=== PATIENT | female | born 1990 | race Caucasian/White ===

== ENCOUNTER 2020-12-25 19:46 | Emergency (ER) | payer BC, SELFPAY ==
[2020-12-25 19:59] VITALS: BP 125/70; PULSE 112; RESP 14; TEMP 36.9; O2SAT 100; BMI 48.5
--- NOTE | 2020-12-25 20:09 | ED_ITS ---
HPI - General: Chief complaint: Vaginal Bleeding Stated complaint: spotting- 17 weeks Time Seen by Provider: 12/25/20 20:07 Source: patient Mode of arrival: ambulatory Limitations: no limitations History of Present Illness: HPI Narrative: 30-year-old female, GP P1 at 17 weeks by LMP started having vaginal bleeding this evening just prior to arrival. No associated cramping. No passage of clots or tissue. Had a normal ultrasound at 8 weeks to confirm dates. No problems since then. First term, uncomplicated other than requiring RhoGam. No dysuria No fever, nausea, vomiting. MD Complaint: vaginal bleeding Onset (ago): hour(s) Date of Last Menstrual Period: 08/26/20 Associated symptoms: Reports vaginal bleeding; Deny abdominal pain, dysuria, headache(s), nausea or vomiting Review of Systems General: Reports: 10 or more systems reviewed and unremarkable except in HPI and below Const: Denies: fever(s), chills, body aches, change in appetite or night sweats Eyes: Denies: change in vision, blurry vision or blind spots Card: Denies: chest pain, palpitations, irregular heart rhythm or lightheadedness Resp: Denies: dyspnea, productive cough or non-productive cough GI: Denies: abdominal pain, nausea, vomiting, heartburn, diarrhea or constipation : Reports: vaginal bleeding; Denies: difficulty voiding or dysuria Skin/Breast: Denies: rash, pruritus, erythema, photosensitivity, skin pain or skin tenderness Neuro: Denies: headache(s), numbness in extremities, weakness in extremities, sensory changes or lack of coordination Psych: Denies: anxiety or depression Endo: Denies: polyuria [facility] ED Female Reproductive History: Date of last menstrual period: 08/26/20 Physical Exam Const: COMMON NORMALS: no acute distress EXAM LIMITATIONS: altered mental status GENERAL APPEARANCE: cooperative and comfortable NUTRITIONAL APPEARANCE: obese ORIENTATION/CONSCIOUSNESS: Yes awake, Yes oriented to person, Yes oriented to place and Yes oriented to time Eye: COMMON NORMALS: EOMs intact bilaterally and negative for no scleral icte deanne GENERAL EYE: appearance normal, both eyes and all related structures Resp: COMMON NORMALS: normal respiratory effort and clear to auscultation bilaterally EFFORT & INSPECTION: Yes able to speak in complete sentences AUSCULTATION: clear to auscultation bilaterally : EXTERNAL FEMALE EXAM: Yes normal appearance of the urethra, Yes Abnormal introitus, No erythema, No externally tender and No external swelling SPECULUM EXAM - VAGINA: No foreign body, Yes vaginal bleeding Amount: small/minimal, No tissue present in vagina and No tenderness SPECULUM EXAM - CERVIX: Yes Cervical os open, No Tissue present in the cervical os, No Cervical lesion present, No Cervical mass present, No Cervical laceration present and No Cervical tenderness present BIMANUAL EXAM - VAGINA & UTERUS: No Cervical tenderness present OB/EXTERNAL & SPECULUM: Cervical os open and vaginal blee ding; no foreign bodies and no tissue noted in vagina UTERUS PALPATION: No Uterus tender Neuro: SENSORIUM/ORIENTATION: Yes oriented to person, Yes oriented to place and Yes oriented to time Skin: COMMON NORMALS: no rashes or lesions noted GENERAL SKIN EXAM: no rashes or lesions noted, no ecchymo and no induration Course Vital Signs: Vital signs: Vital Signs Temperature 98.5 F 12/25/20 22:46 Pulse Rate 95 12/25/20 22:46 Respiratory Rate 18 12/25/20 22:46 Blood Pressure 129/75 12/25/20 22:46 Pulse Oximetry 97 12/25/20 22:46 MDM - OB/Uterine Contractions MDM Narrative: Medical decision making narrative: 30-year-old female at approximately 17 weeks by LMP with vaginal bleeding. Urine hCG in the 400s Ultrasound shows no heart activity, fetus measuring 11 weeks. Light bleeding on exam, cervix soft, partially open. Stable H&H. History of Rh-, RhoGam shot given. Urinalysis does not suggest active infection. Afebrile. Strict return precautions for bleeding and/or infection She already has a follow-up with her PIZZA DELIVERY DRIVER scheduled for tomorrow afternoon. Medical Records: Attestation: I reviewed the patient's medical records. Lab Data: Attestation: I reviewed the patient's lab results. Labs: Lab Results 12/25/20 12/25/20 12/25/20 Range/Units 20:25 20:25 20:25 WBC 10.6 H (4.0-10.0) 10^3/ uL RBC 5.29 (4.1-5.3) 10^6/u L Hgb 13.1 (11.5-15.3) g/dL Hct 42.2 (37.0-47.0) % MCV 79.8 L (81-99) fL MCH 24.8 L (28.0-34.0) pg MCHC 31.0 (30.0-36.0) g/dL RDW 14.6 (12.1-15.1) % Plt Count 255 (130-400) 10^3/c mm MPV 9.8 (7.4-10.4) fL Neut % (Auto) 64.7 % Lymph % (Auto) 27.0 % [place] % (Auto) 5.0 % Eos % (Auto) 2.1 % Baso % (Auto) 0.3 % Neut # (Auto) 6.87 (1.8-7.7) 10^3/u L Lymph # (Auto) 2.9 (0.8-4.8) 10^3/u L [place] # (Auto) 0.5 (0.2-0.9) 10^3/u L Eos # (Auto) 0.2 (0.0-0.8) 10^3/u L Baso # (Auto) 0.0 (0.0-0.1) 10^3/u L Nucleated RBC % (a uto) 0 % Nucleated RBCs # 0.0 /100WBC Sodium 140 (136-145) mmol/L Potassium 3.6 (3.5-5.1) mmol/L Chloride 103 (98-107) mmol/L Carbon Dioxide 26 (22-29) mmol/L Anion Gap 14.6 (5-19) BUN 12 (6-20) mg/dL Creatinine 0.4 L (0.5-0.9) mg/dL GFR Calculation 187.4 H (90-130) mL/min Glucose 82 (65-115) mg/dL Calculated Osmolal ity 289 (285-295) mOsm/k g Calcium 9.7 (8.5-10.5) mg/dL Total Bilirubin 0.2 (0.15-1.2) mg/dL AST 19 (0-32) U/L ALT 26 (0-33) U/L Alkaline Phosphata se 83 (35-105) IU/L Total Protein 7.8 (6.6-8.7) g/dL Albumin 4.2 (3.5-5.2) g/dL Globulin 3.6 (1.3-4.6) g/dL HCG, Qual (Negative) Ser , Suri i-Qnt 481.70 mIU/mL Urine Color (Yellow) Urine Appearance (CLEAR) Urine pH (5-7) Ur Specific Gravit y (1.005-1.030) Urine Protein (Negative) Urine Glucose (UA) (Normal) Urine Ketones (Negative) Urine Blood (Negative) Urine Nitrate (Negative) Urine Bilirubin (Negative) Urine Urobilinogen (Negative) mg/dL Ur Leukocyte Marie ase (Negative) Urine RBC (0-2) /hpf Urine WBC (0-5) /hpf Ur Squamous Epith Cells (0-5) /hpf Amorphous Sediment Urine Bacteria (NONE) /hpf Blood Type O Negative Rho(D) Type Negative Antibody Screen Negative 12/25/20 12/25/20 Range/Units 20:34 20:34 WBC (4.0-10.0) 10^3/ uL RBC (4.1-5.3) 10^6/u L Hgb (11.5-15.3) g/dL Hct (37.0-47.0) % MCV (81-99) fL MCH (28.0-34.0) pg MCHC (30.0-36.0) g/dL RDW (12.1-15.1) % Plt Count (130-400) 10^3/c mm MPV (7.4-10.4) fL Neut % (Auto) % Lymph % (Auto) % [place] % (Auto) % Eos % (Auto) % Baso % (Auto) % Neut # (Auto) (1.8-7.7) 10^3/u L Lymph # (Auto) (0.8-4.8) 10^3/u L [place] # (Auto) (0.2-0.9) 10^3/u L Eos # (Auto) (0.0-0.8) 10^3/u L Baso # (Auto) (0.0-0.1) 10^3/u L Nucleated RBC % (a uto) % Nucleated RBCs # /100WBC Sodium (136-145) mmol/L Potassium (3.5-5.1) mmol/L Chloride (98-107) mmol/L Carbon Dioxide (22-29) mmol/L Anion Gap (5-19) BUN (6-20) mg/dL Creatinine (0.5-0.9) mg/dL GFR Calculation (90-130) mL/min Glucose (65-115) mg/dL Calculated Osmolal ity (285-295) mOsm/k g Calcium (8.5-10.5) mg/dL Total Bilirubin (0.15-1.2) mg/dL AST (0-32) U/L ALT (0-33) U/L Alkaline Phosphata se (35-105) IU/L Total Protein (6.6-8.7) g/dL Albumin (3.5-5.2) g/dL Globulin (1.3-4.6) g/dL HCG, Qual Positive H (Negative) Ser , Suri i-Qnt mIU/mL Urine Color Yellow (Yellow) Urine Appearance Clear (CLEAR) Urine pH 5 (5-7) Ur Specific Gravit y 1.020 (1.005-1.030) Urine Protein Neg (Negative) Urine Glucose (UA) Norm (Normal) Urine Ketones Negative (Negative) Urine Blood 3+ H (Negative) Urine Nitrate Negative (Negative) Urine Bilirubin Neg (Negative) Urine Urobilinogen Norm (Negative) mg/dL Ur Leukocyte Marie ase Negative (Negative) Urine RBC 25-40 H (0-2) /hpf Urine WBC 0-4 H (0-5) /hpf Ur Squamous Epith Cells 15-25 H (0-5) /hpf Amorphous Sediment Not Reportable Urine Bacteria Trace (NONE) /hpf Blood Type Rho(D) Type Antibody Screen Discharge Plan Discharge Patient Disposition: Home Clinical Impression: Incomplete , Vaginal bleeding Condition: Stable Discharge Orders: Discharge ED (Routine); Ordered 12/25/20 Ordered By: Mariely Wilson Referrals: Briana Wan MD [Primary Care Provider] - Discharge Diet: Advance as tolerated Discharge Activity: Resume usual activity Patient Instructions: Spontaneous Miscarriage (ED) Activity Restrictions/Additional Instructions: Rest, drink plenty of fluids. Make sure to follow-up with your PIZZA DELIVERY DRIVER as scheduled tomorrow. Return immediately to the ER if you develop heavy bleeding, dizziness, fever, severe pain, or any other sudden changes. 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
[2020-12-25 20:31] LABS: Basophils % 0.3 %; Eosinophils # 0.2 10^3/uL (0.0-0.8); Eosinophils % 2.1 %; Hematocrit 42.2 % (37.0-47.0); Hemoglobin 13.1 g/dL (11.5-15.3); Lymphocytes # 2.9 10^3/uL (0.8-4.8); Mean Corpuscular Hemoglobin 24.8 pg (28.0-34.0); Mean Corpuscular Volume 79.8 fL (81-99); Mean Platelet Volume 9.8 fL (7.4-10.4); Monocytes # 0.5 10^3/uL (0.2-0.9); Neutrophils # 6.87 10^3/uL (1.8-7.7); Neutrophils % 64.7 %; Nucleated Red Blood Cells % 0 %; Platelet Count 255 10^3/cmm (130-400); Red Blood Count 5.29 10^6/uL (4.1-5.3); Red Cell Distribution Width 14.6 % (12.1-15.1); White Blood Count 10.6 10^3/uL (4.0-10.0)
[2020-12-25] MEDS: sodium chloride 0.9% 1,000 ML 999 ML IV (20:33)
[2020-12-25 20:41] LABS: HCG Qualitative Urine. Positive (Negative)
--- NOTE | 2020-12-25 20:46 | US_ITS ---
WS: [id number] ULTRASOUND EARLY TECHNIQUE: Transabdominal sonography of the pelvis was performed. CLINICAL INFORMATION: vag bleeding, 17 weeks LMP: 08/26/2020 Beta hCG: Unknown. COMPARISON: None. FINDINGS: UTERUS AND GESTATIONAL SAC Intrauterine gestations: Intrauterine gestation with no visualized cardiac activity or movement. Findings compatible with feta l demise. Estimated gestational age: 11w6d [place] rump length (CRL): 5.2 cm. heart motion: 0 BPM. Subchorionic hemorrhage: None. OVARIES Right ovary: Normal. Left ovary: Normal. FREE FLUID None. US/US OB limited [id number] IMPRESSION: 1. No cardiac activity with delayed growth compatible with demise.
[2020-12-25 20:59] LABS: Alanine Aminotransferase 26 U/L (0-33); Albumin Level 4.2 g/dL (3.5-5.2); Alkaline Phosphatase 83 IU/L (35-105); Anion Gap 14.6 (5-19); Aspartate Amino Transferase 19 U/L (0-32); Blood Urea Nitrogen 12 mg/dL (6-20); Calcium 9.7 mg/dL (8.5-10.5); Carbon Dioxide 26 mmol/L (22-29); Chloride 103 mmol/L (98-107); Globulin 3.6 g/dL (1.3-4.6); Glomerular Filtration Rate 187.4 mL/min (90-130); Glucose 82 mg/dL (65-115); Osmolality Calculated 289 mOsm/kg (285-295); Potassium 3.6 mmol/L (3.5-5.1); Sodium 140 mmol/L (136-145); Total Bilirubin 0.2 mg/dL (0.15-1.2); Total Protein 7.8 g/dL (6.6-8.7)
[2020-12-25 22:05] VITALS: BP 123/78; PULSE 99; RESP 18; TEMP 36.8; O2SAT 99
[2020-12-25 22:36] LABS: Add Urine Microscopic? YES; Bilirubin Urine Neg (Negative); Blood Urine 3+ (Negative); Glucose Urine UA Norm (Normal); Ketones Urine Negative (Negative); Leukocyte Esterase Urine Negative (Negative); Nitrate Urine Negative (Negative); Protein Urine Neg (Negative); Urine Appearance Clear (CLEAR); Urine Color Yellow (Yellow); Urobilinogen Urine Norm (Negative); pH Urine 5 (5-7)
[2020-12-25 22:38] LABS: Add Urine Culture? No; Bacteria Urine TRACE /hpf; RBC Urine 25-40 /hpf (0-2); Squamous Epithelial Cell Urine 15-25 /hpf (0-5); WBC Urine 0-4 /hpf (0-5)
[2020-12-25 22:46] VITALS: BP 129/75; PULSE 95; RESP 18; TEMP 36.9; O2SAT 97
== END 2020-12-25 22:52 | disposition home or self-care (01) ==
PROVIDERS: Physician Assistant; Emergency Provider Family Medicine; PCP Family Medicine
DX: O03.4 Incomplete spontaneous abortion without complication (principal)
CPT/HCPCS: 12345; 36430; 76815; 80053; 81001; 81025; 84702; 85025; 86850; 86900; 90384; 96360; 99283; J7030

== ENCOUNTER 2020-12-26 15:12 | Observation (INO) | payer BC, SELFPAY ==
[2020-12-26] VITALS (19 sets, daily range): BP systolic 108–135; BP diastolic 51–66; PULSE 86–102; TEMP 36.4–36.7; BMI 48.4
[2020-12-26] MEDS: miSOPROStol 200 mcg Tablet 800 MCG VAGINAL (16:38)
[2020-12-26 17:19] LABS: Basophils % 0.3 %; Eosinophils # 0.2 10^3/uL (0.0-0.8); Eosinophils % 2.2 %; Hematocrit 41.3 % (37.0-47.0); Hemoglobin 12.6 g/dL (11.5-15.3); Lymphocytes # 2.2 10^3/uL (0.8-4.8); Lymphocytes % 24.1 %; Mean Corpuscular HGB Conc 30.5 g/dL (30.0-36.0); Mean Corpuscular Volume 81.9 fL (81-99); Mean Platelet Volume 10.6 fL (7.4-10.4); Monocytes # 0.4 10^3/uL (0.2-0.9); Monocytes % 4.8 %; Neutrophils # 6.22 10^3/uL (1.8-7.7); Neutrophils % 67.6 %; Nucleated Red Blood Cells % 0 %; Platelet Count 257 10^3/cmm (130-400); Red Blood Count 5.04 10^6/uL (4.1-5.3); Red Cell Distribution Width 14.7 % (12.1-15.1); White Blood Count 9.2 10^3/uL (4.0-10.0)
[2020-12-26] MEDS: miSOPROStol 200 mcg Tablet 400 MCG PO (20:54)
--- NOTE | 2020-12-26 23:45 | PC.NURSE ---
RN called to bedside, patient reports that fetus had delivered. This RN lifted blanket and fetus noted on bed cord still attached. Cord was clamped and cut by this RN. was placed in blanket and handed to mother. Placenta still not delivered.
[2020-12-27] VITALS (46 sets, daily range): BP systolic 111–150; BP diastolic 53–92; PULSE 82–107; RESP 16; TEMP 36.4–36.7
--- NOTE | 2020-12-27 00:05 | PC.NURSE ---
home paged per patient request
--- NOTE | 2020-12-27 00:15 | PC.NURSE ---
linen room attendant at bedside.
--- NOTE | 2020-12-27 00:20 | PC.NURSE ---
home leaves unit with infant.
--- NOTE | 2020-12-27 00:30 | PC.NURSE ---
RN at bedside, placenta not delivered at this time.
[2020-12-27] MEDS: ketorolac 30 mg/mL INJ IVP ×2 (00:42→08:34)
--- NOTE | 2020-12-27 01:47 | PC.NURSE ---
RN at bedside, placenta not delivered at this time.
--- NOTE | 2020-12-27 02:51 | PC.NURSE ---
RN at bedside, placenta not delivered. Carrol care provided.
--- NOTE | 2020-12-27 03:40 | PC.NURSE ---
RN at bedside, markell care. Placenta not delivered.
--- NOTE | 2020-12-27 04:42 | PC.NURSE ---
patient denies wanting any medication for pain at this time.
--- NOTE | 2020-12-27 04:43 | PC.NURSE ---
placenta not delivered at this time
[2020-12-27] MEDS: miSOPROStol 200 mcg Tablet PO (04:58)
[2020-12-27] MEDS: fentaNYL 50 mcg/mL INJ 2mL IV ×2 (04:58→07:25)
[2020-12-27] MEDS: ondansetron 2 mg/ML SDV 2 mL 4 MG IVP (04:58)
--- NOTE | 2020-12-27 07:05 | PC.NURSE ---
RN at bedside, markell care performed. Placenta not delivered.
--- NOTE | 2020-12-27 07:50 | PM.HP ---
Providers/Chief Complaint Admitting Physician: Briana Wan MD Primary Care Provider: Briana Wan MD History of Present Illness Margot Orellana is a 30 year old female G2, P1 who was admitted for medical induction of an 11-week demise. On the evening of December 25 she went to urinate and at that time noticed that she had some bright red vaginal spotting. She said it was not heavy at all. She presented immediately to the ER where she was diagnosed there with an 11-week demise. She did not have any further bleeding and was in stable condition so she was discharged from the ER to follow-up in clinic December 26. ER records were verified and options were discussed with the patient for watchful waiting, surgical D&C, and medical induction. Patient preferred to do medical induction and she was admitted to labor and delivery. Review of Systems Const: Denies: fever(s), chills or body aches Eyes: Denies: change in vision ENMT: Denies: throat pain Card: Denies: chest pain Resp: Denies: productive cough, non-productive cough or wheezing GI: Denies: abdominal pain (No cramping) or vomiting : Reports: vaginal bleeding (None since her spotting when she presented to the ER); Denies: flank pain or vaginal discharge Musc: Denies: joint redness or muscle weakness Skin/Breast: Denies: lesions Neuro: Denies: numbness in extremities or frequent falls Endo: Denies: polyuria or polydipsia Rudy/Lymph: Denies: easy bruising or easy bleeding Medications/Allergies Home Medications Medication Instructions Recorded Confirmed Last Taken Type PNV comb no.58-iron bisgly-FA cap PO 12/26/20 12/25/20 20:00 History Allergies Allergy/AdvReac Type Severity Reaction Status Date / Time No Known Allergies Allergy Verified 12/25/20 19:58 PFSH Acute Female Reproductive History: Date of last menstrual period: 08/26/20 : 2 Other female reproductive history: Prior section for failure to progress Vitals/I&O/Wt Last Vital Signs Temp 97.5 F L 12/27/20 04:45 Pulse 93 12/27/20 07:24 Resp 16 12/27/20 07:25 BP 141/78 12/27/20 07:24 12/26/20 12/27/20 12/27/20 22:59 06:59 14:59 Output Total 800 / 800 Balance -800 / -800 Weight last 48 hrs Weight 265 lb Weight 301 lb Weight 265 lb Physical Exam HENMT: COMMON NORMALS: normocephalic and atraumatic Eye: COMMON NORMALS: Equal, round and reactive pupils present and EOMs intact bilaterally Chest: COMMONS NORMALS: normal inspection of the chest Resp: EFFORT & INSPECTION: Yes able to speak in complete sentences AUSCULTATION: clear to auscultation bilaterally Cardio: COMMON NORMALS: regular rate RATE: tachycardic GI: COMMON NORMALS: Soft to palpation PALPATION: No Tenderness to palpation present (GI) Extremity: COMMON NORMALS: no calf tenderness GENERAL: Yes edema (Trace versus obesity) Neuro: SENSORIUM/ORIENTATION: Yes alert, Yes oriented to person and Yes oriented to place Psych: MOOD & AFFECT: Yes tearful THOUGHT PROCESS: Normal thought process present Data : 12/26/20 15:55 A&P Assessment and plan (1) Incomplete : he patient was admitted last evening and has been administered Cytotec. She did pass the fetus uneventfully. The placenta has yet to pass so she is given another dose of Cytotec. She is receiving pain control with fentanyl. If this next dose of Cytotec is not effective we will plan to take her downstairs for a D&C in the OR. 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
[2020-12-27] MEDS: miSOPROStol 200 mcg Tablet 600 MCG SUBLINGUAL (09:22)
--- NOTE | 2020-12-27 12:53 | PC.NURSE ---
Pt delivered placenta at 1226. Placenta appeared to be intact.
--- NOTE | 2021-01-09 16:54 | PM.DCS ---
Discharge Providers Date of Admission: 12/26/20 15:12 Date of Discharge: December 27, 2020 Attending Provider at Admission: Briana Wan MD Attending Provider at Discharge: Briana Wan MD Primary Care Provider: Briana Wan MD Diagnoses at Discharge Discharge Diagnosis (1) Incomplete : Status: Inactive (2) Vaginal bleeding: Status: Inactive (3) Complete : Status: Acute Hospital Course Hospital Course This is a 30 y/o who was admitted for medically monitored induced of an 11 week demise. The patient successfully passed both fetus and placenta using misoprostil. Her post-delivery bleeding was light and she was requesting discharge home shortly after passing the POC. Discharge Data Vitals: Last Vital Signs Temp 98.1 F 12/27/20 13:53 Pulse 96 12/27/20 13:53 Resp 16 12/27/20 13:53 BP 117/59 12/27/20 13:53 Discharge Plan Discharge Patient Disposition: Home Prescriptions: Continued PNV comb no.58-iron bisgly-FA 10-400 mg-mcg Capsule PO RF: 0 Discharge Orders: Discharge Order (Routine); Ordered 12/27/20 Ordered By: Briana Wan Referrals: Briana Wan MD [Primary Care Provider] - 2 weeks Discharge Diet: Usual diet Discharge Activity: Limit activity as instructed Patient Instructions: Spontaneous Miscarriage (DC) Stand Alone Forms: Work/School Release Discharge Attestations Time Spent in Discharge Care*: less than 30 min Quality Metrics Clinical Quality Measures During this hospital stay, did patient experience: None Coding Level of Care Code Acute Allergy And Immunology Specialist for Chg Fwd Diagnoses Incomplete O03.4 Vaginal bleeding N93.9 Complete O03.9
== END 2020-12-27 13:51 | disposition home or self-care (01) ==
PROVIDERS: Admitting Provider Family Medicine; PCP Family Medicine; Visit Provider Family Medicine
DX: O03.9 Complete or unspecified spontaneous abortion without complication (principal); N93.9 Abnormal uterine and vaginal bleeding, unspecified; Z3A.11 11 weeks gestation of pregnancy
CPT/HCPCS: 36415; 59409; 85025; 96361; 96365; 96375; 99211; G0378; G0379; J1885; J2405; J3010

== ENCOUNTER 2021-03-27 20:00 | Outpatient (CLI) | payer BC, SELFPAY | END 2021-03-27 20:01 | disposition home or self-care (01) | LOC: SLEEP 03-28 10:02 | PROVIDERS: PCP Family Medicine; Visit Provider Family Medicine | DX: G47.33 Obstructive sleep apnea (adult) (pediatric) (principal) | CPT/HCPCS: 95810 ==

== ENCOUNTER 2022-04-24 08:04 | Outpatient (CLI) | payer BC, SELFPAY ==
--- NOTE | 2022-04-24 | US_ITS ---
WS: [id number] Exam: US OB >= 14 weeks fetus [id number] Date/Time of Exam: 04/24/2022 12:00 AM Reason For Exam: 18 WEEKS OF GESTATION OF NUMBER: One PRESENTATION: Vertex CARDIAC ACTIVITY: 1 58 bpm MOVEMENT: Satisfactory AMNIOTIC FLUID VOLUME: Subjectively normal PLACENTA: Posterior grade 0. The placenta partially covers the internal cervical os. BIPARIETAL DIAMETER MEASUREMENTS: 4.8 cm, equals 20w3d. FEMORAL LENGTH MEASUREMENTS: 3.3 cm, equals 20w3d. ABDOMINAL CIRCUMFERENCE: 15.3 cm, equals 20w3d. ESTIMATED WEIGHT: 356 g +/- 50 2 g g. ESTIMATED GESTATIONAL AGE: 20 weeks 3 days YAYA is 09/08/2022 The stomach, kidneys, bladder and cord insertion appear normal. Three-vessel umbilical cord was noted. The spine, lateral ventricles, cerebellum and cisterna magna all appear normal. 4 chambered h eart was confirmed. Recommendations: Follow-up ultrasound in 8-10 weeks would be recommended for ongoing evaluation of pl acental location. US/US OB >= 14 weeks fetus [id number] IMPRESSION: Viable intrauterine with single fetus estimated at 20 weeks 3 days ge stational age. YAYA is 09/08/2022 Posterior placenta with partial placenta previa.
== END 2022-04-24 08:05 | disposition home or self-care (01) ==
LOC: RADOUTREAD 04-25 08:06
PROVIDERS: PCP Family Medicine; Visit Provider Family Medicine
DX: Z3A.18 18 weeks gestation of pregnancy (principal)
CPT/HCPCS: 76805

== ENCOUNTER → 2022-07-03 08:57 | Day surgery (SDC) | payer BC, SELFPAY ==
[2022-07-03 09:29] VITALS: BP 134/77; PULSE 101; RESP 18; TEMP 36.4; O2SAT 96
[2022-07-03 10:34] VITALS: BP 134/77; PULSE 101; RESP 18; TEMP 36.4; O2SAT 96
== END ==
PROVIDERS: PCP Family Medicine; Visit Provider Family Medicine
DX: O26.893 Other specified pregnancy related conditions, third trimester (principal); Z3A.00 Weeks of gestation of pregnancy not specified; Z67.91 Unspecified blood type, Rh negative
CPT/HCPCS: 36415; 86850; 86900; 90384; 96372

== ENCOUNTER 2022-08-01 14:50 | Outpatient (CLI) | payer BC, SELFPAY ==
[2022-08-01] VITALS (10 sets, daily range): BP systolic 128–155; BP diastolic 62–75; PULSE 114–133; RESP 18; TEMP 37.4–38.2; BMI 46.1
[2022-08-01 15:37] LABS: Urine Appearance SL Hazy (CLEAR); Urine Color Yellow (Yellow)
[2022-08-01 15:38] LABS: Bilirubin Urine Neg (Negative); Blood Urine Neg (Negative); Glucose Urine UA Norm (Normal); Ketones Urine 2+ (Negative); Leukocyte Esterase Urine Negative (Negative); Nitrate Urine Negative (Negative); Protein Urine Neg (Negative); Specific Gravity, Urine 1.015 (1.005-1.030); Urobilinogen Urine Norm (Negative); pH Urine 5 (5-7)
[2022-08-01 15:39] LABS: Bacteria Urine 1+ /hpf; RBC Urine RARE /hpf (0-2); WBC Urine 0-4 /hpf (0-5)
[2022-08-01 15:40] LABS: Add Urine Culture? No; Mucus Urine TRACE /hpf
--- NOTE | 2022-08-01 15:59 | USR_ITS ---
PROCEDURE INFORMATION: Exam: US Biophysical Profile Without Non-Stress Test Exam date and time: 08/01/2022 4:39 PM Age: 32 years old Clinical indication: Screening exam; Routine US screening of fetus; Third trimester (=28 weeks 0 days); ; Additional info: Non reactive nst for over 30min TECHNIQUE: Imaging protocol: US biophysical profile without non-stress testing. COMPARISON: No relevant prior studies available. FINDINGS: heart rate: 171 bpm presentation: Cephalic Placenta: Fundal placenta without previa. Amniotic fluid: Amniotic fluid volume is normal. Amniotic fluid index: AMBER is 15.2 cm. BIOPHYSICAL PROFILE: breathing movement (BPP): 2/2 body movement (BPP): 2/2 tone (BPP): 2/2 Amniotic fluid (BPP): 2/2 Biophysical profile score (BPP): 8/8 MATERNAL ANATOMY: Cervix: Cervical length measures 4.3 cm. Closed cervix. US/US OB BPP wo NST [id number] IMPRESSION: Normal biophysical profile score 8/8.
[2022-08-01] MEDS: terbutaline 1 mg/mL INJ 0.25 MG SUBCUT (16:34)
== END 2022-08-01 17:00 | disposition home or self-care (01) ==
LOC: OPOB 15:01 → OBGYN 15:03
PROVIDERS: PCP Family Medicine; Visit Provider Family Medicine
DX: O36.8330 Maternal care for abnormalities of the fetal heart rate or rhythm, third trimester, not applicable or unspecified (principal); O26.893 Other specified pregnancy related conditions, third trimester; R10.9 Unspecified abdominal pain; Z3A.34 34 weeks gestation of pregnancy
CPT/HCPCS: 59025; 76819; 81001; 96372; 99211; J3105

== ENCOUNTER 2022-08-12 15:12 | Outpatient (CLI) | payer BC, SELFPAY ==
[2022-08-12 15:27] VITALS: BP 118/70; PULSE 92
[2022-08-12 15:30] VITALS: BMI 46.5
[2022-08-12 15:48] VITALS: BP 109/72; PULSE 85
== END 2022-08-12 15:55 | disposition home or self-care (01) ==
LOC: OPOB 15:17 → OBGYN 15:18
PROVIDERS: PCP Family Medicine; Visit Provider Family Medicine
DX: O24.419 Gestational diabetes mellitus in pregnancy, unspecified control (principal); O16.9 Unspecified maternal hypertension, unspecified trimester; Z3A.00 Weeks of gestation of pregnancy not specified
CPT/HCPCS: 59025; 99211

== ENCOUNTER 2022-08-16 14:50 | Outpatient (CLI) | payer BC, SELFPAY ==
[2022-08-16 14:50] VITALS: BMI 45.4
[2022-08-16 15:01] VITALS: BP 134/63; PULSE 98
[2022-08-16 15:21] VITALS: BP 136/65; PULSE 89
[2022-08-16 15:35] VITALS: BP 136/65; PULSE 89; RESP 20
== END 2022-08-16 15:30 | disposition home or self-care (01) ==
LOC: OPOB 14:53 → OBGYN 14:54
PROVIDERS: PCP Family Medicine; Visit Provider Family Medicine
DX: O24.419 Gestational diabetes mellitus in pregnancy, unspecified control (principal); Z3A.00 Weeks of gestation of pregnancy not specified; O16.9 Unspecified maternal hypertension, unspecified trimester
CPT/HCPCS: 59025; 99211

== ENCOUNTER 2022-08-19 14:36 | Outpatient (CLI) | payer BC, SELFPAY ==
[2022-08-19 14:43] VITALS: BP 134/62; PULSE 107
[2022-08-19 15:02] VITALS: BMI 47.0
[2022-08-19 15:09] VITALS: BP 123/70; PULSE 96
[2022-08-19 15:23] VITALS: BP 118/66; PULSE 90
--- NOTE | 2022-08-19 15:23 | US_ITS ---
WS: [id number] BIOPHYSICAL PROFILE AMNIOTIC FLUID HISTORY: decels. COMPARISON: 08/01/2022 Cardiac activity: 138 bpm. Cervix: closed. Placenta: Posterior, no previa or abruption. Placenta grade: 2 Parameters are as follows: Breathin Movement: 2 Tone: 2 Fluid volume: 2 Amniotic fluid index: 13.3 cm. Maximal vertical pocket 4.6 cm. US/US OB BPP wo NST [id number] IMPRESSION: 1. Biophysical profile score: 8/8. 2. Normal amniotic fluid index.
[2022-08-19 15:38] VITALS: BP 130/72; PULSE 100
[2022-08-19 15:52] VITALS: BP 131/68; PULSE 96
[2022-08-19 16:08] VITALS: BP 130/75; PULSE 102
== END 2022-08-19 16:00 | disposition home or self-care (01) ==
LOC: OPOB 14:38 → OBGYN 14:39
PROVIDERS: PCP Family Medicine; Visit Provider Family Medicine
DX: O26.899 Other specified pregnancy related conditions, unspecified trimester (principal); Z3A.00 Weeks of gestation of pregnancy not specified
CPT/HCPCS: 59025; 76819

== ENCOUNTER 2022-08-23 14:43 | Outpatient (CLI) | payer BC, SELFPAY ==
[2022-08-23 14:50] VITALS: RESP 18; BMI 46.5
[2022-08-23 14:56] VITALS: BP 129/67; PULSE 93; TEMP 35.8
[2022-08-23 15:22] VITALS: BP 129/67; PULSE 93; TEMP 35.8
== END 2022-08-23 15:22 | disposition home or self-care (01) ==
LOC: OPOB 14:43 → OBGYN 14:44
PROVIDERS: PCP Family Medicine; Visit Provider Family Medicine
DX: O24.419 Gestational diabetes mellitus in pregnancy, unspecified control (principal); O16.9 Unspecified maternal hypertension, unspecified trimester; Z3A.00 Weeks of gestation of pregnancy not specified
CPT/HCPCS: 59025

== ENCOUNTER 2022-08-26 15:07 | Outpatient (CLI) | payer BC, SELFPAY ==
[2022-08-26 15:10] VITALS: BMI 46.5
[2022-08-26 15:44] VITALS: BP 106/57; PULSE 91
== END 2022-08-26 15:53 | disposition home or self-care (01) ==
LOC: OPOB 15:09 → OBGYN 15:09
PROVIDERS: PCP Family Medicine; Visit Provider Family Medicine
DX: O24.419 Gestational diabetes mellitus in pregnancy, unspecified control (principal); O16.9 Unspecified maternal hypertension, unspecified trimester; Z3A.00 Weeks of gestation of pregnancy not specified
CPT/HCPCS: 59025; 99211

== ENCOUNTER 2022-08-30 14:40 | Outpatient (CLI) | payer BC, SELFPAY ==
[2022-08-30 14:52] VITALS: BP 122/56; PULSE 94
[2022-08-30 15:07] VITALS: BP 118/67; PULSE 90
[2022-08-30 15:28] VITALS: BP 118/59; PULSE 90
[2022-08-30 15:50] VITALS: BMI 46.7
== END 2022-08-30 15:28 | disposition home or self-care (01) ==
LOC: OPOB 14:44 → OBGYN 14:45
PROVIDERS: PCP Family Medicine; Visit Provider Family Medicine
DX: O34.219 Maternal care for unspecified type scar from previous cesarean delivery (principal); Z3A.00 Weeks of gestation of pregnancy not specified
CPT/HCPCS: 59025; 99211

== ENCOUNTER 2022-09-02 14:25 | Outpatient (CLI) | payer BC, SELFPAY ==
[2022-09-02 14:25] VITALS: BMI 46.1
[2022-09-02 14:33] VITALS: BP 137/87; PULSE 97
[2022-09-02 14:53] VITALS: BP 137/81; PULSE 82
[2022-09-02 15:15] VITALS: BP 137/81; PULSE 82; RESP 18
== END 2022-09-02 15:05 | disposition home or self-care (01) ==
LOC: OPOB 14:32 → OBGYN 14:32
PROVIDERS: PCP Family Medicine; Visit Provider Family Medicine
DX: O24.419 Gestational diabetes mellitus in pregnancy, unspecified control (principal); O16.9 Unspecified maternal hypertension, unspecified trimester; Z3A.00 Weeks of gestation of pregnancy not specified
CPT/HCPCS: 59025; 99211

== ENCOUNTER 2022-09-03 04:53 | Inpatient (IN) | payer BC, SELFPAY ==
[2022-09-03] VITALS (25 sets, daily range): BP systolic 69–129; BP diastolic 34–69; PULSE 63–98; RESP 17–18; TEMP 36.4; BMI 45.6
[2022-09-03] MEDS: lactated ringers 1,000 ML 999 ML IV ×2 (05:35→17:58)
[2022-09-03 05:45] LABS: Basophils % 0.3 %; Eosinophils # 0.1 10^3/uL (0.0-0.8); Eosinophils % 1.3 %; Hematocrit 40.4 % (37.0-47.0); Hemoglobin 12.7 g/dL (11.5-15.3); Lymphocytes # 2.1 10^3/uL (0.8-4.8); Lymphocytes % 21.3 %; Mean Corpuscular HGB Conc 31.4 g/dL (30.0-36.0); Mean Corpuscular Hemoglobin 25.5 pg (28.0-34.0); Mean Platelet Volume 10.7 fL (7.4-10.4); Monocytes # 0.7 10^3/uL (0.2-0.9); Monocytes % 7.2 %; Neutrophils # 6.88 10^3/uL (1.8-7.7); Nucleated Red Blood Cells % 0 %; Platelet Count 233 10^3/cmm (130-400); Red Blood Count 4.99 10^6/uL (4.1-5.3); Red Cell Distribution Width 16.3 % (12.1-15.1)
[2022-09-03] MEDS: ceFAZolin 2,000 MG in sodium chloride 0.9% (plus) 50 ML 100 MG IV (05:47)
[2022-09-03] MEDS: lactated ringers 1,000 ML 125 ML IV (06:45)
--- NOTE | 2022-09-03 06:46 | ANES.PREANE2 ---
Pre-Anesthetic Assessment Height/Weight: Height 1.63 m Weight 120.656 kg Temp Pulse Resp BP O2 Del Method 97.5 F L 88 18 123/69 09/03/22 06:31 09/03/22 05:17 09/03/22 05:02 09/03/22 05:17 09/03/22 05:00 Preop Diagnosis: Repeat Operation Date: 09/03/22 07:00 Proposed Procedures p Section Repeat Q34.219,Z34.83(Not Applicable) - Briana Wan MD Familial anesthetic complications: None Was Beta Diana taken within 24 hours: N/A Was Clonidine taken within 24 hours: N/A Last intake: Intake Last Liquid Date 09/02/22 Last Liquid Time 20:00 Last Solid Date 09/02/22 Last Solid Time 20:00 Last Intake: 21:00 Social No alcohol and No tobacco Exam alert, oriented x 3, clear to auscultation bilaterally and regular rate & rhythm Airway Submandibular: within normal limits Cervical ROM: within normal limits Mallampati: Class II Pulmonary Sleep Apnea (Bi-pap) CV/HEM Hypertension None reported Hepatic None reported GI None reported Metabolic Morbid Obesity [facility] Scoliosis (Slight curve reported) and None reported Neuropsych None reported Anesthetic Plan ASA status: 3 Anesthesia: Anesthesia Evaluation and Eval. for regional block (Spinal) Risk of > 500 ml blood loss (7ml/kg in children): Yes, adequate IV access and fluids planned Medications/Allergies Home Medications Medication Instructions Recorded Confirmed Last Taken Type no.58-iron bisglycinate 1 cap PO DAILY 12/26/20 09/03/22 09/02/22 03:00 History 10 mg iron-folic acid 400 mcg capsule Allergies Allergy/AdvReac Type Severity Reaction Status Date / Time No Known Allergies Allergy Verified 09/03/22 05:13 Current Medications Generic Name Dose Route Start Last Admin Trade Name Freq PRN Reason Stop Dose Admin Lactated Ringer's 1,000 mls @ 125 mls/hr 09/03/22 05:15 09/03/22 06:45 Lactated Ringers IV 125 mls/hr .Q8H SCAR Administration PFSH Anesthesia Female Reproductive History Date of last menstrual period: 08/26/20 : 3 Data Anesthesia : 09/03/22 05:36 Short CBC 09/03/22 Range/Units 05:36 WBC 10.0 (4.0-10.0) 10^3/uL Hgb 12.7 (11.5-15.3) g/dL Hct 40.4 (37.0-47.0) % MCV 81.0 (81-99) fl Plt Count 233 (130-400) 10^3/cmm Neut % (Auto) 69.0 % Neut # (Auto) 6.88 (1.8-7.7) 10^3/uL Blood Bank 09/03/22 05:36 Blood Type O Negative Rho(D) Type Negative Antibody Screen Negative Cardiac Studies: No Data to Display
[2022-09-03] MEDS: metoclopramide 5 mg/mL SDV 2 mL 10 MG IVP (06:56)
[2022-09-03] MEDS: citric acid-sodium citrate 30 mL UDC PO (06:56)
[2022-09-03] MEDS: famotidine 20 mg/2 mL INJ IVP (06:56)
--- NOTE | 2022-09-03 06:57 | PM.OPHPUD ---
Labor & Delivery H&P Update Date of Procedure: September 03, 2022 Date H&P Performed: 08/29/22 Admission Diagnosis: IUP at 39w1d gestation Repeat Diet controlled gestational diabetes mellitus Borderline chronic hypertension Morbid obesity Planned procedure: Operation Date: 09/03/22 07:00 Proposed Procedures p Section Repeat Q34.219,Z34.83(Not Applicable) - Briana Wan MD
--- NOTE | 2022-09-03 09:20 | PM.OP ---
Operative Report Date of procedure: September 03, 2022 Pre-op diagnosis: Preop Diagnosis Repeat Procedure done: Repeat low transverse section Via Pfannenstiel skin incision Specimens removed/disposition: Vertex female weight 3.72 g, Apgars 8 and 9 Surgeon: Briana Wan MD Estimated blood loss (mL): 700 IV fluids (mL): 1,500 Urine output (mL): 300 Complications: None Procedure: After informed consent the patient was taken to the OR. It took multiple attempts and multiple providers to obtain spinal anesthesia. She was then prepped and draped in normal sterile fashion in dorsal supine position with a left lateral tilt. After adequate spinal anesthesia was verified a Pfannenstiel skin incision was made and carried through to the underlying layer of fascia sharply. There were multiple small but significant pulsating vessels that were coagulated using a hemostat and the Bovie. The fascial incision was then extended laterally using the Mayos. The peritoneum was bulging through the rectus muscles and some of the peritoneum was adhered to the fascia. The fascia was grasped with [place] clamps and the underlying rectus muscles were dissected off taking care to avoid injury to the underlying tissue. The peritoneum was entered bluntly and the incision site was manually stretched. The bladder blade was inserted and the vesicouterine peritoneum was identified and entered sharply using the Metzenbaums. Bladder flap was then created digitally. The bladder blade was reinserted. Uterine incision was made in a transverse fashion in the lower uterine segment. The lower uterine segment was extremely thick. Amniotic rupture of membranes was performed digitally and there was a moderate amount of clear fluid. The was delivered atraumatically in vertex position with bulb suction at the mouth and nares at delivery. The cord was clamped and cut and the was then handed to the waiting pediatric team. The 's birthweight was 3.72 kg, 8 pounds 3 ounces, Apgars 8 and 9 . The placenta was then delivered using fundal pressure. The uterus was then exteriorized from the abdomen and a dry sponge was used to clear the uterus of clots and debris. The uterine incision was repaired using 0 chromic in a running locked fashion. A second layer of the same suture was used in an imbricating manner. There was a small amount of bleeding at the midline that was sutured with 0 chromic [id number] suture. The uterus was then returned to the abdomen. Irrigation was used to clear the gutters of clots and debris and the uterine incision was reinspected for hemostasis. The peritoneum was then reapproximated using 4-0 Vicryl in a running fashion. The fascia was then reapproximated using 0 Vicryl in a running fashion. The subcutaneous tissue was irrigated. Any small bleeders were coagulated using the Bovie. The subcutaneous tissue was then reapproximated using 4-0 Vicryl in a running fashion. The skin was then reapproximated using 4-0 Vicryl in a running fashion on a Cameron needle. Steri-Strips and a pressure bandage were applied and patient went to recovery in good condition Sponge instrument and needle counts were correct
[2022-09-03] MEDS: dextrose 5%-lactated ringers 1,000 ML 125 ML IV ×2 (11:29→21:41)
--- NOTE | 2022-09-03 14:29 | ANE.PACU2 ---
Inpatient post-anesthesia follow up: Airway intact: Yes Vital signs: Temperature 97.6 F Pulse Rate 81 Respiratory Rate 17 Blood Pressure 108/56 Pulse Oximetry Oxygen Delivery Me thod Room Air Oxygen Flow Rate Fraction of Inspir ed Oxygen Hydration adequate: Yes Nausea and vomiting: No Pain level: 1 Mental status: Baseline
[2022-09-03] MEDS: ketorolac 30 mg/mL INJ IVP ×2 (15:12→21:40)
[2022-09-03] MEDS: sodium chloride 0.9% 500 ML 999 ML IV (15:12)
--- NOTE | 2022-09-03 17:30 | PC.NURSE ---
Pt attempted to get up out of chair to ambulate in hallway with nurse. When pt stood up and remained standing in front of the chair she was noted to become dizzy, light headed and had ringing in her ears. Pt was immediately sat back down and cool rag were placed to neck and forehead. Pt denies any other wants or needs at this time.
--- NOTE | 2022-09-03 20:19 | PC.NURSE ---
This nurse entered pt's room to perform assessment and encourage pt to walk. Pt stated after the incident earlier of lightheadedness and almost passing out, she would rather wait until tomorrow to ambulate. Nurse educated pt on benefits of ambulation and pt stated she wanted to get back in bed. Pt assisted back in bed, SCDs placed, and pt oriented.
[2022-09-03 22:30] LABS: Mean Corpuscular HGB Conc 31.6 g/dL (30.0-36.0); Mean Corpuscular Hemoglobin 25.9 pg (28.0-34.0); Mean Corpuscular Volume 81.8 fl (81-99); Platelet Count 189 10^3/cmm (130-400); Red Blood Count 3.36 10^6/uL (4.1-5.3); Red Cell Distribution Width 16.6 % (12.1-15.1); White Blood Count 11.2 10^3/uL (4.0-10.0)
[2022-09-03 23:00] LABS: Hematocrit 27.5 % (37.0-47.0); Hemoglobin 8.7 g/dL (11.5-15.3)
[2022-09-04] VITALS (9 sets, daily range): BP systolic 118–131; BP diastolic 55–61; PULSE 102–114; RESP 15–16; TEMP 36.3–36.6; O2SAT 96
[2022-09-04] MEDS: ketorolac 30 mg/mL INJ IVP (03:12)
[2022-09-04] MEDS: dextrose 5%-lactated ringers 1,000 ML 125 ML IV (06:37)
--- NOTE | 2022-09-04 07:30 | PC.NURSE ---
Patient ambulated with this RN x 2 laps around OBGYN floor. Patient states she has passed flatus. Tolerates activity well. Catheter removed, regular diet ordered, IV fluids d/c. SIGRID COVARRUBIAS
--- NOTE | 2022-09-04 08:08 | PC.NURSE ---
Surgical dressing removed. steri strips intact, minimal drainage. Patient education given on cleaning area, and drying well. Patient verbalized understanding. SIGRID COVARRUBIAS
[2022-09-04] MEDS: ferrous sulfate EC 325 mg Tablet PO (08:23)
[2022-09-04] MEDS: docusate sodium 100 mg Capsule PO ×2 (08:23→21:31)
[2022-09-04] MEDS: prenatal vitamin Capsule 1 CAP PO (08:24)
[2022-09-04] MEDS: ibuprofen 800 mg tablet PO ×2 (11:48→21:31)
--- NOTE | 2022-09-04 18:32 | PC.NURSE ---
This RN at bedside for incision care. As ordered by MD, steri-strips removed, incision cleaned with peroxide and dried, new steri-strips applied, interdry applied in between panis and incision. Patient educated again to keep site dry. Patient verbalized understanding. SIGRID COVARRUBIAS
[2022-09-05 06:33] VITALS: BP 122/58; PULSE 101; TEMP 36
[2022-09-05 08:46] VITALS: BP 124/58; PULSE 121
[2022-09-05] MEDS: docusate sodium 100 mg Capsule PO (08:46)
[2022-09-05] MEDS: prenatal vitamin Capsule 1 CAP PO (08:46)
[2022-09-05] MEDS: ibuprofen 800 mg tablet PO (08:46)
[2022-09-05 08:47] VITALS: TEMP 36.5
[2022-09-05] MEDS: ferrous sulfate EC 325 mg Tablet PO (08:52)
--- NOTE | 2022-09-05 12:51 | P.DS_ITS ---
Discharge Providers Date of Admission: 09/03/22 04:53 Date of Discharge: September 05, 2022 Attending Provider at Admission: Briana Wan MD Attending Provider at Discharge: Briana Wan MD Primary Care Provider: Giovanny Scruggs MD Reason for Visit Reason for Visit: Hospital Course Hospital Course This is a this is a 32-year-old G3 now P2 who had a scheduled repeat section. She has done well postoperatively. She is ambulating, tolerating a regular diet, passing flatus, and has good pain control with oral medications. Physical Exam Narrative: Alert and oriented, sitting up in bedside chair, heart regular rate and rhythm, lungs clear to auscultation bilaterally, abdomen is soft with appropriate postoperative tenderness, incision is clean dry and intact, extremities have some nonpitting edema but no calf tenderness. Urinary Catheter Management: Jerry: Cath Placed During This Visit: yes Reason for Continuing Indwelling Catheter: Perioperative Use in Selected Surgeries Urinary Catheter Date of Insertion: 09/03/22 Urinary Catheter Time of Insertion: 08:00 Discharge Data Studies Completed and Pending Laboratory Results WBC 11.2 10^3/uL (4.0-10.0) H 09/03/22 21:50 RBC 3.36 10^6/uL (4.1-5.3) L 09/03/22 21:50 Hgb 8.7 g/dL (11.5-15.3) L D 09/03/22 21:50 Hct 27.5 % (37.0-47.0) L D 09/03/22 21:50 MCV 81.8 fl (81-99) 09/03/22 21:50 MCH 25.9 pg (28.0-34.0) L 09/03/22 21:50 MCHC 31.6 g/dL (30.0-36.0) 09/03/22 21:50 RDW 16.6 % (12.1-15.1) H 09/03/22 21:50 Plt Count 189 10^3/cmm (130-400) 09/03/22 21:50 MPV 11.0 fL (7.4-10.4) H 09/03/22 21:50 Neut % (Auto) 69.0 % 09/03/22 05:36 Lymph % (Auto) 21.3 % 09/03/22 05:36 [place] % (Auto) 7.2 % 09/03/22 05:36 Eos % (Auto) 1.3 % 09/03/22 05:36 Baso % (Auto) 0.3 % 09/03/22 05:36 Neut # (Auto) 6.88 10^3/uL (1.8-7.7) 09/03/22 05:36 Lymph # (Auto) 2.1 10^3/uL (0.8-4.8) 09/03/22 05:36 [place] # (Auto) 0.7 10^3/uL (0.2-0.9) 09/03/22 05:36 Eos # (Auto) 0.1 10^3/uL (0.0-0.8) 09/03/22 05:36 Baso # (Auto) 0.0 10^3/uL (0.0-0.1) 09/03/22 05:36 Nucleated RBC % (auto) 0 % 09/03/22 05:36 Nucleated RBCs # 0.0 /100WBC 09/03/22 05:36 Blood Type O Negative 09/03/22 05:36 Rho(D) Type Negative 09/03/22 05:36 Antibody Screen Negative 09/03/22 05:36 Screen Negative (Negative) 09/03/22 21:50 Vitals Last Vital Signs Temp 97.7 F 09/05/22 08:47 Pulse 121 H 09/05/22 08:46 Resp 15 09/04/22 16:31 BP 124/58 09/05/22 08:46 Pulse Ox 96 09/04/22 07:46 O2 Del Method 09/03/22 14:00 Discharge Plan Discharge Patient Disposition: Home Condition: Stable Prescriptions: New docusate sodium 100 mg Capsule 100 mg PO BID Qty: 60 0RF ibuprofen 800 mg Tablet 800 mg PO TID PRN (Reason: Abdominal Discomfort) Qty: 40 0RF hydrocodone-acetaminophen 5-325 mg Tablet 1 - 2 tab PO Q4H PRN (Reason: Moderate To Severe Pain) Qty: 15 0RF Continued PNV comb no.58-iron bisgly-FA 10-400 mg-mcg Capsule 1 cap PO DAILY Discharge Orders: Discharge Order (Routine); Ordered 09/05/22 Ordered By: Briana Wan Referrals: Briana Wan MD [Physician] - 1-3 days (Friday) Discharge Diet: Usual diet Discharge Activity: Limit activity as instructed Patient Instructions: Opioid Safety Discharge Attestations Time Spent in Discharge Care*: less than 30 min Quality Metrics Clinical Quality Measures [ No reported AMI, CVA or VTE this stay] Coding Level of Care Code Acute Chg FW DC note
[2022-09-05 14:15] VITALS: BP 116/59; PULSE 97; TEMP 36.1
[2022-09-05 14:22] VITALS: BP 116/59; PULSE 97; TEMP 36.1
--- NOTE | 2022-09-05 14:23 | PC.NURSE ---
Patient paper rx given to patient. Patient verbalizes understanding to take hydrocodone rx to pharmacy to fill prescription. Patient verbalizes all discharge instructions. SIGRID COVARRUBIAS
== END 2022-09-05 14:25 | disposition home or self-care (01) | DRG 787 ==
PROVIDERS: Admitting Provider Family Medicine; PCP Family Medicine; Visit Provider Family Medicine
PROC: 10D00Z1 Extraction of Products of Conception, Low, Open Approach (ICD-10-PCS; CPT 59514; principal; 2022-09-03 07:00)
DX: O34.211 Maternal care for low transverse scar from previous cesarean delivery (principal); O36.0930 Maternal care for other rhesus isoimmunization, third trimester, not applicable or unspecified; Z3A.39 39 weeks gestation of pregnancy; Z37.0 Single live birth; G47.33 Obstructive sleep apnea (adult) (pediatric)
CPT/HCPCS: 36415; 36430; 51702; 59025; 85025; 85027; 85460; 86850; 86900; 90384; 96374; 96376; J1885; J2274; J2370; J2765; J3010; J3490; J7030; J7040

== ENCOUNTER 2022-11-12 06:00 | Outpatient (RCR) | payer BC, SELFPAY | END 2022-11-16 23:59 | disposition home or self-care (01) | LOC: SPT 06:00 | PROVIDERS: PCP Family Medicine; Visit Provider Family Medicine | DX: I89.0 Lymphedema, not elsewhere classified (principal) | CPT/HCPCS: 29581; 97140; 97161 ==

== ENCOUNTER 2022-11-17 06:00 | Outpatient (RCR) | payer OTHER, SELFPAY | END 2022-12-17 23:59 | disposition home or self-care (01) | LOC: SPT 06:00 | PROVIDERS: PCP Family Medicine; Visit Provider Family Medicine | DX: I89.0 Lymphedema, not elsewhere classified (principal) | CPT/HCPCS: 29581; 97140 ==

== ENCOUNTER 2024-06-13 14:55 | Emergency (ER) | payer OTHER, SELFPAY ==
[2024-06-13 15:02] VITALS: BP 117/69; PULSE 99; RESP 16; TEMP 36.7; O2SAT 94; BMI 45.1
[2024-06-13 15:28] LABS: Basophils % 0.3 %; Eosinophils # 0.2 10^3/uL (0.0-0.8); Hematocrit 43.6 % (36-47); Lymphocytes # 2.5 10^3/uL (0.8-4.8); Lymphocytes % 24.4 %; Mean Corpuscular HGB Conc 30.7 g/dL (30-55); Mean Corpuscular Hemoglobin 24.4 pg (27-33); Mean Corpuscular Volume 79.4 fl (85-98); Mean Platelet Volume 9.5 fL (7.4-10.4); Monocytes # 0.6 10^3/uL (0.2-0.9); Neutrophils # 6.76 10^3/uL (1.8-7.7); Neutrophils % 66.6 %; Nucleated Red Blood Cells % 0 %; Platelet Count 246 10^3/cmm (157-399); Red Blood Count 5.49 10^6/uL (3.85-5.65); Red Cell Distribution Width 14.8 % (12.1-15.1); White Blood Count 10.14 10^3/uL (3.29-11.43)
--- NOTE | 2024-06-13 16:11 | USR_ITS ---
PROCEDURE INFORMATION: Exam: US First Trimester, Transabdominal and US , Transvaginal Exam date and time: 06/13/2024 5:00 PM Age: 34 years old Clinical indication: Lmp or gestational age (in weeks): 12w 5d; Antepartum complications; Bleeding; ; Patient HX: HX of miscarriage; Additional info: Vaginal bleeding LABS AND CLINICAL REPORTS: Gestational age (Established): 12 w 5 d Estimated due date (Established): 12/21/2024 TECHNIQUE: Imaging protocol: Real-time transabdominal obstetrical ultrasound of the maternal pelvis and a first trimester , less than 14 weeks 0 days, with image documentation. Transvaginal imaging was used for better evaluation of the fetus, adnexa, and/or cervix. COMPARISON: US OB BPP NST [id number] 08/19/2022 3:44 PM FINDINGS: GESTATION: Gestation: Single intrauterine is visualized. Yolk sac measures 4.4 mm. Embryonic/ heart rate: No heart rate is visualized at this time, which may be due to early gestation. Extra-embryonic membranes/Placenta: Unremarkable. No subchorionic bleed. Amniotic/Chorionic fluid: Amniotic and extra-amniotic fluid are normal for gestational age. BIOMETRY: Gestational age (AUA): Based on the average crown-rump length of approximately 2.0 cm, the estimated gestational age is approximately 8 weeks 4 days. MATERNAL: Uterus: Unremarkable. Cervix: Unremarkable. Endocervical canal is closed. Right ovary/adnexa: Obscured by lack of adequate acoustic window. Left ovary/adnexa: Within normal limits. Intraperitoneal space: No intraperitoneal free fluid. US/US OB <=14 wk fetus w transvag IMPRESSION: Based on the average crown-rump length of approximately 2.0 cm, the estimated gestational age is approximately 8 weeks 4 days. No heart rate is visualized at this time, which may be due to early gestation. Recommend clinical correlation with beta HCG.
--- NOTE | 2024-06-13 16:22 | ED_ITS ---
HPI - 2 General: Chief complaint: Vaginal Bleeding Stated complaint: 12 weeks cramping and bleeding Time Seen by Provider: 06/13/24 16:10 Source: patient Mode of arrival: ambulatory Limitations: no limitations History of Present Illness: 34-year-old female who states she is 12 weeks states she started having some spotting yesterday with some very small clots she denies any heavy bleeding she had some very mild lower abdominal cramping denies any pain. States she is concerned she is having a miscarriage she denies any vomiting denies any diarrhea Associated symptoms: Deny abdominal pain, headache(s), nausea or vomiting Review of Systems 2 Const: Denies: fever(s), chills, body aches or change in appetite ENMT: Denies: throat pain or dental pain Card: Denies: chest pain Resp: Denies: dyspnea GI: Denies: abdominal pain, nausea, vomiting or diarrhea : Reports: vaginal bleeding Musc: Denies: neck pain or back pain Skin/Breast: Denies: rash Neuro: Denies: headache(s) Physical Exam 2 Const: COMMON NORMALS: no acute distress, patient oriented x3 and healthy appearing HENMT: COMMON NORMALS: normocephalic and atraumatic HEAD & SCALP: n ormocephalic and atraumatic Neck/C-Spine: COMMON NORMALS: full ROM and supple Chest: COMMONS NORMALS: normal inspection of the chest Resp: COMMON NORMALS: normal respiratory effort and clear to auscultation bilaterally AUSCULTATION: clear to auscultation bilaterally Cardio: COMMON NORMALS: regular rate, regular rhythm and No murmurs present (Cardio) RATE: regular rate RHYTHM: regular rhythm GI: COMMON NORMALS: Normal to inspection, nondistended, normoactive bowel sounds present, Soft to palpation, non-tender and no masses PALPATION: Yes Soft to palpation Extremity: COMMON NORMALS: normal to inspection and full ROM Neuro: COMMON NORMALS: patient oriented x3, moves all extremities and no focal motor deficits Psych: COMMON NORMALS: mental status grossly normal, Normal thought process present and cooperative THOUGHT PROCESS: Normal thought process present Skin: COMMON NORMALS: no rashes or lesions noted and no wounds GENERAL SKIN EXAM: no rashes or lesions noted Course 2 Vital Signs: Vital signs: Vital Signs Temperature 98.2 F 06/13/24 16:56 Pulse Rate 99 06/13/24 17:11 Respiratory Rate 17 06/13/24 17:11 Blood Pressure 156/84 06/13/24 16:56 Pulse Oximetry 99 06/13/24 17:11 Oxygen Delivery Me thod Room Air 06/13/24 15:02 MDM - OB/Uterine Contractions Medical Decision Making Patient presents here with a threatened miscarriage likely demise seen on ultrasound did inform her of the ultrasound findings of no heartbeat she has an appoint with her OB tomorrow she is to follow-up as scheduled tomorrow return if worsening she understands agrees to plan Medical Records I reviewed the patient's medical records. Lab Data I reviewed the patient's lab results. 06/13/24 15:17 Laboratory Results WBC 10.14 10^3/uL (3.29-11.43) 06/13/24 15:17 RBC 5.49 10^6/uL (3.85-5.65) 06/13/24 15:17 Hgb 13.40 g/dL (11.27-16.99) 06/13/24 15:17 Hct 43.6 % (36-47) 06/13/24 15:17 MCV 79.4 fl (85-98) L 06/13/24 15:17 MCH 24.4 pg (27-33) L 06/13/24 15:17 MCHC 30.7 g/dL (30-55) 06/13/24 15:17 RDW 14.8 % (12.1-15.1) 06/13/24 15:17 Plt Count 246 10^3/cmm (157-399) 06/13/24 15:17 MPV 9.5 fL (7.4-10.4) 06/13/24 15:17 Neut % (Auto) 66.6 % 06/13/24 15:17 Lymph % (Auto) 24.4 % 06/13/24 15:17 [place] % (Auto) 6.0 % 06/13/24 15:17 Eos % (Auto) 2.0 % 06/13/24 15:17 Baso % (Auto) 0.3 % 06/13/24 15:17 Neut # (Auto) 6.76 10^3/uL (1.8-7.7) 06/13/24 15:17 Lymph # (Auto) 2.5 10^3/uL (0.8-4.8) 06/13/24 15:17 [place] # (Auto) 0.6 10^3/uL (0.2-0.9) 06/13/24 15:17 Eos # (Auto) 0.2 10^3/uL (0.0-0.8) 06/13/24 15:17 Baso # (Auto) 0.0 10^3/uL (0.0-0.1) 06/13/24 15:17 Nucleated RBC % (auto) 0 % 06/13/24 15:17 Nucleated RBCs # 0.0 /100WBC 06/13/24 15:17 Ser , Semi-Qnt 1996.00 mIU/mL 06/13/24 15:17 Blood Type O Negative 06/13/24 15:17 Rho(D) Type Rh negative 06/13/24 15:17 Antibody Screen Negative 06/13/24 15:17 All radiology interpretation(s) finalized by discharge Discharge Plan Discharge Patient Disposition: Home Clinical Impression: Threatened miscarriage Condition: Stable Prescriptions: No Action PNV comb no.58-iron bisgly-FA 10-400 mg-mcg Capsule 1 cap PO DAILY docusate sodium 100 mg Capsule 100 mg PO BID Qty: 60 0RF ibuprofen 800 mg Tablet 800 mg PO TID PRN (Reason: Abdominal Discomfort) Qty: 40 0RF hydrocodone-acetaminophen 5-325 mg Tablet 1 - 2 tab PO Q4H PRN (Reason: Moderate To Severe Pain) Qty: 15 0RF Discharge Orders: Discharge ED (Routine); Ordered 06/13/24 Ordered By: Jeb Garrison Referrals: Giovanny Scruggs MD [Primary Care Provider] - Discharge Diet: Advance as tolerated Discharge Activity: Resume usual activity Patient Instructions: Threatened Miscarriage (ED) Stand Alone Forms: Work/School Release Coding Level of Care Code ED Air Pumper for [place]
[2024-06-13 16:40] VITALS: BP 130/71; PULSE 105; RESP 17; TEMP 37; O2SAT 100
[2024-06-13 16:56] VITALS: BP 156/84; PULSE 107; RESP 17; TEMP 36.8; O2SAT 95
[2024-06-13 17:11] VITALS: PULSE 99; RESP 17; O2SAT 99
[2024-06-13 17:50] VITALS: BP 124/89; PULSE 100; O2SAT 97
== END 2024-06-13 17:53 | disposition home or self-care (01) ==
PROVIDERS: Emergency Provider Emergency Medicine; PCP Family Medicine
DX: O20.0 Threatened abortion (principal); Z3A.12 12 weeks gestation of pregnancy
CPT/HCPCS: 36415; 36430; 76801; 76817; 84702; 85025; 86850; 86900; 90384; 99284